=== PATIENT | female | born 1995 | race Caucasian/White ===

== ENCOUNTER 2018-09-14 12:11 | Emergency (ER) | payer MEDICAID, OTHER ==
[~2018-09-14] VITALS: Wt 109.0 kg
[~2018-09-14 12:11] MED LIST: ACET1TAB40 PO; AZIT250T PO; BENZ1LOZ52 MM; IBUP-1542 PO; NPH10OT LEFT EAR
[2018-09-14] MEDS ORDERED: ONDANSETRON 4 MG INJ IV STA (14:18)
[2018-09-14] MEDS ORDERED: ALBUTEROL 0.083% (NEB) 2.5 MG/3 ML AMP HHN STA ×2 (14:18→17:04)
[2018-09-14] MEDS ORDERED: KETOROLAC 30 MG INJ IV STA (14:18)
[2018-09-14] MEDS ORDERED: SOD CHLORIDE 0.9% 1,000 ML IV ONE (14:30)
[2018-09-14] MEDS ORDERED: IPRATROPIUM (NEB) 0.5 MG/2.5 ML AMP HHN ONE ×2 (14:30→17:30)
[2018-09-14] MEDS ORDERED: METHYLPREDNISOLONE 125 MG INJ IV ONE (17:30)
[2018-09-14] MEDS ORDERED: DIPHENHYDRAMINE 50 MG INJ IV ONE (17:30)
[2018-09-14] MEDS ORDERED: METOCLOPRAMIDE 10 MG INJ IV ONE (17:30)
[2018-09-14] MEDS ORDERED: ALBU18HF INHALATION (20:26)
[2018-09-14] MEDS ORDERED: IBUP800T48 PO (20:26)
[2018-09-14] MEDS ORDERED: GUAI118L22 PO (20:26)
[2018-09-14] MEDS ORDERED: ACET325T33 PO (20:26)
[2018-09-14] MEDS ORDERED: ALBU2.5V3 NEB (20:26)
[2018-09-14] MEDS ORDERED: ONDA4TAB14 PO (20:26)
[2018-09-14] MEDS ORDERED: CETI10TA19 PO (20:26)
[2018-09-14] MEDS ORDERED: MONT10TA21 PO (20:26)
[2018-09-14] MEDS ORDERED: DEXAMETHASONE 10 MG/ML 1 ML INJ IM ONE (20:30)
[2018-09-14 20:47] VITALS: BP 134/61; PULSE 105; RESP 18
--- NOTE | 2018-09-16 17:56 | ERD ---
ER Documentation Chief Complaint Chief Complaint cough, sob, fever, back pains, SCHRADER x2wks p tx amoxicillin wo relief HPI Patient assessment at 1412 on 09/14/2018 . history of Present Illness: 23-year-old female with past medical history of asthma coming in today with complaint of cough, shortness of breath, subjective fever with unknown T-max, back pain, headache, fatigue, decreased appetite. Patient reports symptoms have been present for 2 weeks. Patient reports 2 episodes of vomiting that occurred today. Patient reports that she finished a 7 to 10-day course of amoxicillin; patient was seen at [facility] diagnosed with " blood in lungs". Patient denies any other associated symptoms. At home pharmacological/nonpharmacological treatment for symptoms: Inhaler at 12 PM; ibuprofen at 5 AM Denies social concerns; Denies recent foreign travel ROS All systems reviewed and are negative except as per history of present illness. Medications Home Meds Active Scripts Montelukast Sodium* (Singulair*) 10 Mg Tablet, 10 MG PO QHS for prevent asthma allergen flare, #30 TAB Prov:WALKER RIVERS NP 09/14/18 Cetirizine Hcl* (Cetirizine Hcl*) 10 Mg Tablet, 10 MG PO DAILY for allergies/cough/runny nose, #30 TAB Prov:WALKER RIVERS NP 09/14/18 Ibuprofen* (Motrin*) 800 Mg Tab, 800 MG PO Q6H PRN for PAIN AND OR ELEVATED TEMP, #30 TAB Prov:WALKER RIVERS NP 09/14/18 Acetaminophen* (Tylenol*) 325 Mg Tablet, 2 TAB PO Q6 PRN for PAIN AND OR ELEVATED TEMP, #20 TAB Prov:WALKER RIVERS NP 09/14/18 Albuterol Sulfate* (Ventolin HFA*) 18 Gm Hfa.aer.ad, 2 PUFF INHALATION Q4H, #1 INHALER Prov:WALKER RIVERS NP 09/14/18 Albuterol Sulfate* (Albuterol Sulfate* Neb) 0.083%-3 Ml Neb, 2.5 MG NEB Q4 PRN for SHORTNESS OF BREATH, #30 EA Prov:WALKER RIVERS NP 09/14/18 Guaifenesin/Codeine Phosphate (CHERATUSSIN AC SYRUP) 118 Ml Liquid, 10 ML PO Q6H PRN for cough/chest congestion/phylm, #118 ML Prov:WALKER RIVERS V [employer] 09/14/18 Ondansetron (Ondansetron Odt) 4 Mg Tab.rapdis, 4 MG PO Q6H PRN for NAUSEA AND/OR VOMITING, #10 TAB Prov:WALKER RIVERS [employer] 09/14/18 Benzocaine/Menthol* (Cepacol* Sore Throat Lozenges) 1 Each Lozenge, 1 EACH MM q2h PRN for SORE THROAT, #20 LOZENGE Prov:JESUS DURAN PA-C 11/17/15 Ibuprofen* (Motrin*) 600 Mg Tab, 600 MG PO Q6, #30 TAB Prov:JESUS DURAN PA-C 11/17/15 Neomycin/Polymyxin/Hydrocort* (Cortisporin* Otic) 10 Ml Susp, 4 DROP LEFT EAR QID for 7 Days, EA Prov:GILBERTO DON MD 11/01/14 Ibuprofen* (Motrin*) 600 Mg Tab, 600 MG PO Q6, #14 TAB Prov:GILBERTO DON MD 11/01/14 Azithromycin* (Zithromax*) 250 Mg Tablet, 250 MG PO .ZPACK DIRECTED, #6 TAB TAKE 500 MG (2 TABS) THE FIRST DAY THEN 250 MG (1 TAB) DAYS 2-5 Prov:GILBERTO DON MD 11/01/14 Acetaminophen-Codeine* (Acetaminophen-Cod #3*) 300-30 Mg Tab, 1 TAB PO Q4H PRN for PAIN, #10 TAB Prov:GILBERTO DON MD 11/01/14 Allergies Allergies: Coded Allergies: No Known Allergy (Unverified , 11/01/14) PMhx/Soc History of Surgery: Yes (tonsillectomy) Anesthesia Reaction: No Hx Neurological Disorder: No Hx Respiratory Disorders: No Hx Cardiac Disorders: No Hx Psychiatric Problems: No Hx Miscellaneous Medical Probl: No Hx Alcohol Use: No Hx Substance Use: No Hx Tobacco Use: No Smoking Status: Never smoker FmHx Family History: No diabetes, No coronary disease Physical Exam Vitals Vital Signs Date Temp Pulse Resp B/P (MAP) Pulse Ox O2 O2 Flow FiO2 Time Delivery Rate 09/14/18 98.6 105 18 134/61 98 Room Air 20:47 (85) 09/14/18 98.4 110 20 133/73 99 12:48 (93) Physical Exam Const: No acute distress, patient appears fatigued Head: Atraumatic Eyes: Normal Conjunctiva ENT: Normal External Ears, Nose and Mouth. Neck: Full range of motion. No meningismus. Resp: Coarse breath sounds and wheezing to auscultation bilaterally, no labored breathing. Cardio: Regular rate and rhythm, no murmurs Abd: Soft, non tender, non distended. Normal bowel sounds Skin: No petechiae or rashes Back: No midline or flank tenderness Ext: No cyanosis, or edema Neur: Awake and alert Psych: Normal Mood and Affect Result Diagram: 09/14/18 1632 09/14/18 1632 Results 24 hrs Laboratory Tests Test 09/14/18 14:38 09/14/18 14:42 09/14/18 16:32 Urine Color YELLOW Urine Clarity SLIGHTLY CLOUDY Urine pH 9.0 Urine Specific [place] 1.012 Urine Ketones NEGATIVE mg/dL Urine Nitrite NEGATIVE mg/dL Urine Bilirubin NEGATIVE mg/dL Urine Urobilinogen NEGATIVE mg/dL Urine Leukocyte Esterase TRACE Kia/ul Urine Microscopic RBC 2 /HPF Urine Microscopic WBC 3 /HPF Urine Squamous Epithelial Cells MODERATE /HPF Urine Amorphous Crystals FEW /HPF Urine Bacteria FEW /HPF Urine Yeast (Budding) FEW /HPF Urine Hemoglobin NEGATIVE mg/dL Urine Glucose NEGATIVE mg/dL Urine Total Protein NEGATIVE mg/dl POC Beta HCG, Qualitative NEGATIVE White Blood Count 6.6 10^3/ul Red Blood Count 4.04 10^6/ul Hemoglobin 11.3 g/dl Hematocrit 36.1 % Mean Corpuscular Volume 89.4 fl Mean Corpuscular Hemoglobin 28.0 pg Mean Corpuscular 31.3 g/dl Hemoglobin Concent Red Cell Distribution Width 12.7 % Platelet Count 191 10^3/UL Mean Platelet Volume 9.2 fl Immature Granulocytes % 0.600 % Neutrophils % 42.2 % Lymphocytes % 44.2 % Monocytes % 7.3 % Eosinophils % 5.2 % Basophils % 0.5 % Nucleated Red Blood Cells % 0.0 /100WBC Immature Granulocytes # 0.040 10^3/ul Neutrophils # 2.8 10^3/ul Lymphocytes # 2.9 10^3/ul Monocytes # 0.5 10^3/ul Eosinophils # 0.3 10^3/ul Basophils # 0.0 10^3/ul Nucleated Red Blood Cells # 0.0 10^3/ul Sodium Level 142 mmol/L Potassium Level 3.5 mmol/L Chloride Level 106 mmol/L Carbon Dioxide Level 25 mmol/L Anion Gap 11 Blood Urea Nitrogen 7 mg/dl Creatinine 0.41 mg/dl Est Glomerular Filtrat > 60 mL/min Rate mL/min Glucose Level 125 mg/dl Calcium Level 8.9 mg/dl Total Bilirubin 0.1 mg/dl Direct Bilirubin 0.00 mg/dl Indirect Bilirubin 0.1 mg/dl Aspartate Amino Transf (AST/SGOT) 41 IU/L Alanine 48 IU/L Aminotransferase (ALT/SGPT) Alkaline Phosphatase 66 IU/L Total Protein 7.8 g/dl Albumin 4.2 g/dl Globulin 3.60 g/dl Albumin/Globulin Ratio 1.16 Current Medications Medications Dose Sig/Julianne Start Time Status Last (Trade) Ordered Route PRN Stop Time Admin Dose Reason Admin Sodium 1,000 ml @ Q1H ONCE 09/14/18 DC 09/14/18 Chloride 1,000 mls/hr IV 14:30 09/14/18 14:56 15:29 Ondansetron 4 mg ONCE STAT 09/14/18 DC 09/14/18 HCl (Zofran IV 14:18 09/14/18 14:56 Inj) 14:23 Ketorolac 30 mg ONCE STAT 09/14/18 DC 09/14/18 Tromethamine IV 14:18 09/14/18 14:56 (Toradol) 14:23 Albuterol 5 mg ONCE STAT 09/14/18 DC 09/14/18 (Proventil HHN 14:18 09/14/18 15:31 0.083% (Neb)) 14:23 Ipratropium 0.5 mg ONCE ONCE 09/14/18 DC 09/14/18 [place] HHN 14:30 09/14/18 15:30 (Atrovent 14:31 0.02% (Neb)) 125 mg ONCE ONCE 09/14/18 DC 09/14/18 Methylprednis IV 17:30 09/14/18 17:19 olone Sodium 17:31 Succinate (Solu-Medrol) 5 mg ONCE ONCE 09/14/18 DC 09/14/18 Metoclopramid IV 17:30 09/14/18 17:19 e HCl 17:31 (Reglan) 12.5 mg ONCE ONCE 09/14/18 DC 09/14/18 Diphenhydrami IV 17:30 09/14/18 17:17 ne HCl 17:31 (Benadryl) Albuterol 5 mg ONCE STAT 09/14/18 DC 09/14/18 (Proventil HHN 17:04 09/14/18 17:40 0.083% (Neb)) 17:05 Ipratropium 0.5 mg ONCE ONCE 09/14/18 DC 09/14/18 [place] HHN 17:30 09/14/18 17:41 (Atrovent 17:31 0.02% (Neb)) 10 mg ONCE ONCE 09/14/18 DC 09/14/18 Dexamethasone IM 20:30 09/14/18 20:42 (Decadron) 20:31 Procedures/MDM ED course includes a thorough examination and history. Medications: Nebulizer treatments including albuterol and ipratropium, ketorolac, Zofran, IV NS Imaging: Chest x-ray Labs: Urinalysis, urine ED course: Consultation with ED physician Dr. Agosto; x-ray results reviewed. Agrees with plan of care to proceed forward with CT chest without contrast due to x-ray results. Results of x-ray/of chest showed: IMPRESSION: Atelectasis in the bilateral lower lungs. Elevated right hemidiaphragm. 10 mm nodular density over the right lower lung and anterior right fourth rib. This could reflect a lung nodule versus focus of sclerosis in the fourth rib. Further characterization with CT can be considered. RPTAT: AA .Tho Romeo MD, MD --- Patient reassessment at 1620: Patient updated on results of x-ray. I will plan on plan of care and agrees. CBC, CMP, Reglan, diphenhydramine, methylprednisolone, CT chest ordered. Another round of breathing treatments also ordered including ipratropium and albuterol. Patient reports that nausea has decreased significantly but has mildly returned and is still present; this is the indication for the diphenhydramine and Reglan. Coarse breath sounds and expiratory wheezing has decreased, will order second round of breathing treatments as well as steroids. Low suspicion for life-threatening medical emergency. Low suspicion for medical emergency that requires antibiotics at this time. Low suspicion for cardiopulmonary emergency requires hospitalization or immediate surgical intervention. Patient is hemodynamically stable and afebrile without use of antipyretics. Patient reports feeling much better after fluids and pain medic ations and antiemetics and breathing treatments. Otherwise healthy patient presenting with constellation of symptoms likely representing asthma exacerbation/upper respiratory infection/atelectasis of both lungs as characterized by history, physical exam findings, radiology findings, lab findings. CBC: no e/o of systemic infection or severe anemia. CMP: no e/o severe acidosis, alkalosis, renal failure, diabetic ketoacidosis, liver disease. Urinalysis negative for infection. Urine negative. No respiratory distress, otherwise relatively well appearing and nontoxic. Patient educated on diagnoses, prescriptions, follow-up care, return precautions. Will give dose of dexamethasone before discharge; questions answered and disposition given. Strict return precautions given for worsening condition; questions answered discharge. Disposition for discharge with followup in 2 days with PCP/clinic. Departure Diagnosis: Primary Impression: Medication refill Additional Impressions: Asthma exacerbation Asthma severity: unspecified severity Asthma persistence: unspecified Qualified Codes: J45.901 - Unspecified asthma with (acute) exacerbation URI (upper respiratory infection) URI type: unspecified URI Qualified Codes: J06.9 - Acute upper respiratory infection, unspecified Atelectasis of both lungs Condition: Stable Patient Instructions: Atelectasis, Preventing Common Respiratory Infections Referrals: [facility] YOU HAVE RECEIVED A MEDICAL SCREENING EXAM AND THE RESULTS INDICATE THAT YOU DO NOT HAVE A CONDITION THAT REQUIRES URGENT TREATMENT IN THE EMERGENCY DEPARTMENT. FURTHER EVALUATION AND TREATMENT OF YOUR CONDITION CAN WAIT UNTIL YOU ARE SEEN IN YOUR DOCTORS OFFICE WITHIN THE NEXT 1-2 DAYS. IT IS YOUR RESPONSIBILITY TO MAKE AN APPOINTMENT FOR FOLOW-UP CARE. IF YOU HAVE A PRIMARY DOCTOR --you should call your primary doctor and schedule an appointment IF YOU DO NOT HAVE A PRIMARY DOCTOR YOU CAN CALL OUR PHYSICIAN REFERRAL HOTLINE AT IF YOU CAN NOT AFFORD TO SEE A PHYSICIAN YOU CAN CHOSE FROM THE FOLLOWING [facility] [address] [facility]. [facility]818) [phone] [facility]. [facility] [address] [facility] [address]. [facility] [address] [facility]. [facility]. [address] [facility]. [facility] YOU HAVE RECEIVED A MEDICAL SCREENING EXAM AND THE RESULTS INDICATE THAT YOU DO NOT HAVE A CONDITION THAT REQUIRES URGENT TREATMENT IN THE EMERGENCY DEPARTMENT. FURTHER EVALUATION AND TREATMENT OF YOUR CONDITION CAN WAIT UNTIL YOU ARE SEEN IN YOUR DOCTORS OFFICE WITHIN THE NEXT 1-2 DAYS. IT IS YOUR RESPONSIBILITY TO MAKE AN APPOINTMENT FOR FOLOW-UP CARE. IF YOU HAVE A PRIMARY DOCTOR --you should call your primary doctor and schedule and appointment IF YOU DO NOT HAVE A PRIMARY DOCTOR YOU CAN CALL OUR PHYSICIAN REFERRAL HOTLINE AT . IF YOU CAN NOT AFFORD TO SEE A PHYSICIAN YOU CAN CHOSE FROM THE FOLLOWING [facility] INSTITUTIONS: [facility] [address] [place] [address] [facility] [address] [place] [address] [facility] [address] [place] [address] Additional Instructions: Thank you very much for allowing us to participate in your care. Your health and safety is our top priority at [facility]. It is important to read all discharge instructions and education provided in your discharge packet. Call your primary care doctor TOMORROW for an appointment during the next 2-4 days and bring all the information and medications prescribed. Have prescriptions filled and follow precisely the directions on the label. If the symptoms get worse and your provider is unavailable, return to the Emergency Department immediately. WALKER RIVERS NP September 16, 2018 17:56
== END 2018-09-14 20:54 | disposition home or self-care (01) ==
LOC: FTE 12:11
DX: J45.901 Unspecified asthma with (acute) exacerbation (principal); J06.9 Acute upper respiratory infection, unspecified; Z76.0 Encounter for issue of repeat prescription
CPT/HCPCS: 71046; 71250; 80053; 81001; 81025; 85025; 94640; 94664; 96361; 96372; 96374; 96375; J1100; J1200; J1885; J2405; J2765; J2930; J7030; Z7502; Z7610

== ENCOUNTER 2019-01-13 20:14 | Emergency (ER) | payer OTHER ==
[~2019-01-13] VITALS: Ht 175.3 cm; Wt 118.8 kg
[~2019-01-13 20:14] MED LIST changes: +ACET325T33 PO; +ALBU18HF INHALATION; +ALBU2.5V3 NEB; +BISM-34 PO; +CETI10TA19 PO; +CIPR500T4 PO; +GUAI118L22 PO; +HYDR25SU23 PR; +IBUP800T48 PO; +METR500T PO; +MONT10TA21 PO; +ONDA4TAB14 PO
[2019-01-13 20:24] VITALS: Ht 175.3 cm; Wt 118.8 kg
[2019-01-13] MEDS ORDERED: ONDANSETRON 4 MG INJ IV STA (21:25)
[2019-01-13] MEDS ORDERED: SOD CHLORIDE 0.9% 1,000 ML IV STA (21:25)
[2019-01-14] MEDS ORDERED: KETOROLAC 30 MG INJ IV STA (00:02)
[2019-01-14 00:50] VITALS: BP 125/79; PULSE 94; RESP 16
== END 2019-01-14 00:50 | disposition home or self-care (01) ==
LOC: FTE 20:14
DX: I88.0 Nonspecific mesenteric lymphadenitis (principal)
CPT/HCPCS: 36415; 74176; 80053; 81001; 81003; 81025; 83690; 85025; 96361; 96374; 96375; J1885; J2405; J7030; Z7502